=== PATIENT | female | born 1955 | race African-American/Black ===

== ENCOUNTER 2018-06-24 10:46 | Inpatient (IN) ==
[2018-06-24 13:06] LABS: Apearance,Urine CLEAR (Clear); Bilirubin,Urine Negative (Negative); Blood, Urine Negative (Negative); Glucose,Urine (UA) Negative (Negative); Ketones,Urine Negative (Negative); Mucus,Urine Occasional /LPF (Occasional); Nitrite,Urine Negative (Negative); Protein,Urine 30 MG/DL; RBC,Urine <1 /HPF (0-4); Squamous Epithelial Cell,Urine Occasional /HPF (0-10); Urine Specific Gravity 1.016 (1.001-1.035); WBC,Urine <1 /HPF (0-6)
[2018-06-24 13:07] LABS: Urine Color Yellow (Yellow)
[2018-06-24 13:23] LABS: Basophils % 0.2 % (0.0-0.8); Eosinophils % 0.1 % (0.00-10.9); Immature Granulocytes Absolute 0.24 #; Lymphocytes # 1.7 10*3/uL (1.4-4.0); Lymphocytes % 13.9 % (21.3-54.2); Mean Corpuscular HGB Conc 29.9 GM/DL (32-36); Mean Corpuscular Hemoglobin 18 PG (27-34); Mean Corpuscular Volume 61.7 FL (87-102); Mean Platelet Volume 9.5 FL (9.6-12.0); Monocytes # 0.8 10*3/uL (0.11-0.8); Neutrophils # 9.3 10*3/uL (1.4-7.4); Neutrophils % 76.8 % (38.7-73.9); Platelet Count 397 T/CUMM (130-400); Red Blood Count 2.66 MC/CUMM (3.8-5.5); Red Cell Distribution Width 19.6 % (9.3-17.3)
[2018-06-24 13:34] LABS: Hemoglobin 4.9 GM/DL (12.0-16.0)
[2018-06-24 13:35] LABS: Hematocrit 16.4 VOL% (35.7-47.0)
[2018-06-24 13:36] LABS: Partial Thromboplastin Time 28.2 SECS (0-40)
[2018-06-24] MEDS ORDERED: SODIUM CHLORIDE 0.9% 1,000 ML IV PRN ×2 (13:38→14:10)
[2018-06-24 13:45] LABS: Albumin 2.4 G/DL (3.4-5.0); Calcium 8.1 MG/DL (8.5-10.1); Potassium 4.1 MMOL/L (3.5-5.1); Total Protein 7.2 G/DL (6.4-8.3)
[2018-06-24] MEDS ORDERED: ACETAMINOPHEN 325 MG TABLET PO PRN (14:06)
[2018-06-24] MEDS: LACTATED RINGERS 1,000 ML IV SCH (17:15)
[2018-06-24] MEDS ORDERED: METOPROLOL TARTRATE 25 MG TABLET PO SCH (21:00)
[2018-06-24] MEDS ORDERED: hydrALAZINE 25 MG TABLET PO SCH (21:00)
[2018-06-25] MEDS: LACTATED RINGERS 1,000 ML IV SCH ×2 (01:45→09:54)
[2018-06-25] MEDS ORDERED: diphenhydrAMINE 50 MG/1 ML VIAL IV ONE (07:43)
[2018-06-25] MEDS ORDERED: ACETAMINOPHEN 500 MG TABLET PO ONE (07:43)
[2018-06-25] MEDS ORDERED: FAMOTIDINE 20 MG/2 ML VIAL IV ONE (07:43)
[2018-06-25] MEDS ORDERED: DEXAMETHASONE INJ 10 MG in SODIUM CHLORIDE 0.9% 50 ML IV ONE (08:30)
[2018-06-25 08:55] LABS: Basophils % 0.2 % (0.0-0.8); Immature Granulocytes % 1.5 %; Immature Granulocytes Absolute 0.19 #; Lymphocytes # 2.3 10*3/uL (1.4-4.0); Lymphocytes % 17.9 % (21.3-54.2); Mean Corpuscular HGB Conc 29.4 GM/DL (32-36); Mean Corpuscular Hemoglobin 18 PG (27-34); Mean Platelet Volume 9.2 FL (9.6-12.0); Monocytes % 7.7 % (1.7-12.7); NRBC # 0.07 10*3/uL; Neutrophils # 9.2 10*3/uL (1.4-7.4); Neutrophils % 72.7 % (38.7-73.9); Platelet Count 381 T/CUMM (130-400); Red Blood Count 2.51 MC/CUMM (3.8-5.5); Red Cell Distribution Width 19.3 % (9.3-17.3); White Blood Count 12.6 T/CUMM (4-12)
[2018-06-25] MEDS ORDERED: PANTOPRAZOLE 40 MG VIAL IV SCH (09:00)
[2018-06-25] MEDS ORDERED: amLODIPine 10 MG TABLET PO SCH (09:00)
[2018-06-25 09:09] LABS: Hematocrit 15.3 VOL% (35.7-47.0); Hemoglobin 4.5 GM/DL (12.0-16.0)
[2018-06-25 09:21] LABS: Calcium 8.2 MG/DL (8.5-10.1); Osmolality,Calculated 278.5 MOS/KG (273-304); Potassium 3.9 MMOL/L (3.5-5.1)
[2018-06-25] MEDS ORDERED: SODIUM CHLORIDE 0.9% IV ONE (10:00)
[2018-06-25] MEDS ORDERED: IRON SUCROSE IV ONE (10:00)
[2018-06-25] MEDS ORDERED: DEXTROSE 50% 25 GM/50 ML VIAL IV PRN (10:42)
[2018-06-25] MEDS ORDERED: GLUCAGON 1 MG VIAL IM PRN (10:42)
[2018-06-25 14:33] VITALS: BP 158/72
[2018-06-25] MEDS ORDERED: INSULIN REGULAR 100 UNIT/ML SUBCUT SCH (16:30)
== END 2018-06-25 15:55 | disposition hospice, home (50) | DRG 761 ==
LOC: N.ED 10:46 → N.EDINP 14:05 → N.OB 15:55
PROVIDERS: ADMIT Obstetrics & Gynecology; ATTEND Obstetrics & Gynecology